=== PATIENT | female | born 1985 | race Caucasian/White ===

== ENCOUNTER 2020-04-01 04:42 | Emergency (ER) | payer OTHER, SELFPAY ==
--- NOTE | ~2020-04-01 | CT_ITS ---
EXAMINATION: CT abdomen pelvis wo con DATE: 04/01/2020 05:50 INDICATION: Left abdominal pain. TECHNIQUE: Computed tomography (CT) of the abdomen and pelvis was performed without intravenous contr ast. Automated exposure control and iterative reconstruction technique were employed. The dose-length product was 1311.93 mGy-cm. COMPARISON: None. FINDINGS: The visualized portions of the lung bases are clear without pneumonia or pleural effusion. The heart size is normal. No pericardial effusion. There is a small sliding hiatal hernia. The liver, gallbladder, spleen, pancreas, and left adrenal gland are normal. There is mild left hydronephrosis. There is asymmetric edema in left perinephric space. There is a 7 mm stone in proximal left ureter. There are no dilated loops of bowel. The appendix is normal. There are no pathologically enlarged lym ph nodes. There is no free intraperitoneal fluid. There is mild thoracic spondylosis. IMPRESSION: 1. 7 mm stone in proximal left ureter with mild left hydronephrosis. Reviewed, dictated and finalized at location A. 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
[2020-04-01 05:09] VITALS: BP 134/99; PULSE 72; RESP 18; TEMP 36.6; O2SAT 95
--- NOTE | 2020-04-01 05:12 | ED_ITS ---
HPI - General Adult General Chief complaint: Back Pain/Injury <Israel Stein DO Last Filed: 04/01/20 06:52> Stated complaint: Back Pain <Israel Stein DO Last Filed: 04/01/20 06:52> Time Seen by Provider: 04/01/20 07:12 <Israel Stein Last Filed: 04/01/20 06:52> Source: patient <Israel Stein Last Filed: 04/01/20 06:52> Mode of arrival: ambulatory <Israel Stein Last Filed: 04/01/20 06:52> Limitations: no limitations <Israel Stein Filed: 04/01/20 06:52> History of Present Illness HPI narrative: Nia is a 34F with a PMH of asthma that presented to the ED with left flank pain. It was moderate yesterday but while laying in bed it became severe tonight. It radiates from her left flank down to her left groin and is associated with nausea but no vomiting. No diarrhea, constipation, CP, SOB or sy ncope/near-syncope. No fevers or chills. <Israel Stein DO Filed: 04/01/20 06:52> Related Data Home medications: Home Medications Medication Instructions Recorded Confirmed albuterol 90 mcg INHALATION PRN PRN 04/01/20 04/01/20 budesonide-formoterol [Symbicort] 1 puff INHALATION DAILY 04/01/20 04/01/20 montelukast 10 mg PO DAILY 04/01/20 04/01/20 topiramate 75 mg PO DAILY 04/01/20 04/01/20 <Israel Stein DO Last Filed: 04/01/20 06:52> Allergies/adverse reactions: Allergies Allergy/AdvReac Type Severity Reaction Status Date / Time codeine Allergy Severe THROAT Verified 01/25/10 23:17 SWELLS <Israel Stein DO Last Filed: 04/01/20 06:52> Review of Systems Review of Systems: All systems reviewed & are unremarkable except as noted in HPI and below <DO Jay Crowder Last Filed: 04/01/20 06:52> [facility] Past Medical History Medical History: Medical History COPD (chronic obstructive pulmonary disease) Migraine headache <Israel Stein, DO - Last Filed: 04/01/20 06:52> Exam Const: General: alert <Israel Escobardeandrafarzana DO - Last Filed: 04/01/20 06:52> Orientation/consciousness: patient oriented x3 <Israel Stein, DO - Last Filed: 04/01/20 06:52> Limitations: No altered mental status <Israel AdyConcepcion Shawndeandrafarzana, DO - Last Filed: 04/01/20 06:52> Other: in mild distress <Israel Escobardeandrafarzana, DO - Last Filed: 04/01/20 06:52> HENMT: Other: normocephalic, atraumatic <Israel GarsiaConcepcion Shawndeandrafarzana, DO - Last Filed: 04/01/20 06:52> Eyes: Conjunctivae: conjunctivae normal <Israel Stein, - Last Filed: 04/01/20 06:52> Pupils: Equal, round and reactive pupils present <Israel Stein, DO - Last Filed: 04/01/20 06:52> Neck: Neck: normal visual inspection <Israel Escobardeandrafarzana, - Last Filed: 04/01/20 06:52> Chest: Chest palpation & inspection: normal inspection of the chest <Israel GarsiaConcepcion Stein DO - Last Filed: 04/01/20 06:52> Resp: Effort & Inspection: normal respiratory effort <Israel Escobardeandrafarzana - Last Filed: 04/01/20 06:52> Auscultation: clear to auscultation bilaterally <Israel AdyConcepcion Shawnsteven, DO - Last Filed: 04/01/20 06:52> Cardio: Rate: regular rate <Israel AdyConcepcion Shawnsteven DO - Last Filed: 04/01/20 06:52> Rhythm: regular rhythm <Israel AdyConcepcion Stein DO - Last Filed: 04/01/20 06:52> GI: Inspection: non-distended <Israel Stein, DO - Last Filed: 04/01/20 06:52> GI Palp: Yes
--- NOTE | 2020-04-01 05:12 | ED.GENADULT ---
HPI - General Adult General Chief complaint: Back Pain/Injury <Israel Stein DO Last Filed: 04/01/20 06:52> Stated complaint: Back Pain <Israel Stein DO - Last Filed: 04/01/20 06:52> Time Seen by Provider: 04/01/20 07:12 <Israel Stein - Last Filed: 04/01/20 06:52> Source: patient <Israel Stein DO - Last Filed: 04/01/20 06:52> Mode of arrival: ambulatory <Israel Stein - Last Filed: 04/01/20 06:52> Limitations: no limitations <Israel Stein Last Filed: 04/01/20 06:52> History of Present Illness HPI narrative: Nia is a 34F with a PMH of asthma that presented to the ED with left flank pain. It was moderate yesterday but while laying in bed it became severe tonight. It radiates from her left flank down to her left groin and is associated with nausea but no vomiting. No diarrhea, constipation, CP, SOB or syncope/near-syncope. No fevers or chills. <Israel Stein DO Last Filed: 04/01/20 06:52> Related Data Home medications: Home Medications Medication Instructions Recorded Confirmed albuterol 90 mcg INHALATION PRN PRN 04/01/20 04/01/20 budesonide-formoterol [Symbicort] 1 puff INHALATION DAILY 04/01/20 04/01/20 montelukast 10 mg PO DAILY 04/01/20 04/01/20 topiramate 75 mg PO DAILY 04/01/20 04/01/20 <Israel Stein DO - Last Filed: 04/01/20 06:52> Allergies/adverse reactions: Allergies Allergy/AdvReac Type Severity Reaction Status Date / Time codeine Allergy Severe THROAT Verified 01/25/10 23:17 SWELLS <Israel Stein DO - Last Filed: 04/01/20 06:52> Review of Systems Review of Systems: All systems reviewed & are unremarkable except as noted in HPI and below <Israel Stein DO - Last Filed: 04/01/20 06:52> [facility] Past Medical History Medical History: Medical History COPD (chronic obstructive pulmonary disease) Migraine headache <Israel Stein, DO - Last Filed: 04/01/20 06:52> Exam Const: General: alert <Israel GarsiaConcepcion Shawndeandrafarzana, DO - Last Filed: 04/01/20 06:52> Orientation/consciousness: patient oriented x3 <Israel Stein, DO - Last Filed: 04/01/20 06:52> Limitations: No altered mental status <Israel GarsiaConcepcion Shawndeandrafarzana, DO - Last Filed: 04/01/20 06:52> Other: in mild distress <Israel Escboardeandrafarzana, DO - Last Filed: 04/01/20 06:52> HENMT: Other: normocephalic, atraumatic <Israel GarsiaConcepcion Shawndeandrafarzana, DO - Last Filed: 04/01/20 06:52> Eyes: Conjunctivae: conjunctivae normal <Israel Escobardeandrafarzana, DO - Last Filed: 04/01/20 06:52> Pupils: Equal, round and reactive pupils present <Israel Stein, DO - Last Filed: 04/01/20 06:52> Neck: Neck: normal visual inspection <Israel Escobardeandrafarzana, DO - Last Filed: 04/01/20 06:52> Chest: Chest palpation & inspection: normal inspection of the chest <Israelmaury Stein, DO - Last Filed: 04/01/20 06:52> Resp: Effort & Inspection: normal respiratory effort <Israel Escobardeandrafarzana, DO - Last Filed: 04/01/20 06:52> Auscultation: clear to auscultation bilaterally <Israel AdyConcepcion Shawnsteven, DO - Last Filed: 04/01/20 06:52> Cardio: Rate: regular rate <Israel GarsiaConcepcion Shawnsteven DO - Last Filed: 04/01/20 06:52> Rhythm: regular rhythm <Israelmaury Stein DO - Last Filed: 04/01/20 06:52> GI: Inspection: non-distended <Israel Stein DO - Last Filed: 04/01/20 06:52> GI Palp: Yes Soft to palpation, No Tenderness to palpation present (GI) and No Guarding due to palpation present (GI) <Israel Stein DO - Last Filed: 04/01/20 06:52> : General: Yes no CVA tenderness <Israel Stein DO - Last Filed: 04/01/20 06:52> Back/Spine/Pelvis: Other: Left sided CVA tenderness <Irsael Stein DO - Last Filed: 04/01/20 06:52> Skin: General skin exam: normal color <Israel Stein DO - Last Filed: 04/01/20 06:52> Rashes: no rashes <Israel Stein DO - Last Filed: 04/01/20 06:52> Neuro: General: patient o
[2020-04-01] MEDS: ONDANSETRON HCL ODT 4 MG TABLET PO (05:19)
[2020-04-01] MEDS: KETOROLAC 30 MG/ML VIAL (*BKC) IM (05:20)
[2020-04-01 05:40] LABS: Basophils Absolute Auto 0.05 K/mm3 (0.00-0.10); Basophils Percent Auto 0.4 % (0.0-1.0); Eosinophils Absolute Auto 0.01 K/mm3 (0.02-0.50); Eosinophils Percent Auto 0.1 % (1.0-6.0); Hematocrit 38.4 % (35.0-49.0); Hemoglobin 12.8 g/dL (12.0-15.0); Immature Granulocyte Absolute 0.04 K/mm3 (0.00-0.00); Immature Granulocyte Percent A 0.3 % (0.0-0.0); Lymphocytes Absolute Auto 1.27 K/mm3 (1.10-4.50); Lymphocytes Percent Auto 9.6 % (18.0-42.0); Mean Corpuscular HGB Conc 33.3 g/dL (32.0-36.0); Mean Corpuscular Hemoglobin 30.3 pg (27.0-31.0); Mean Platelet Volume 9.8 fl (9.2-11.8); Monocytes Absolute Auto 0.62 K/mm3 (0.10-0.90); Monocytes Percent Auto 4.7 % (2.0-11.0); Neutrophils Absolute Auto 11.2 K/mm3 (1.7-7.2); Neutrophils Percent Auto 84.9 % (50.0-70.0); Platelet Count Result 281 K/mm3 (150-420); Red Blood Count 4.22 M/mm3 (4.20-5.40); Red Cell Distribution Width 12.4 % (11.6-14.4); White Blood Count 13.2 K/mm3 (4.8-10.8)
[2020-04-01 05:42] LABS: Add Urine Microscopic? YES; Appearance Urine Sl Cloudy (Clear); Bilirubin Urine Negative (Negative); Blood Urine 3+ (Negative); Color Urine Yellow (Yellow); Glucose Urine UA Negative (Negative); Ketones Urine Negative (Negative); Leukocyte Esterase Ur Negative (Negative); Nitrate Urine Negative (Negative); Pregnancy On Board Control Positive; Protein Urine Negative (Negative); Specific Grav Ur >= 1.030 (1.010-1.020); Urine Pregnancy Test Negative; Urobilinogen Urine 0.2 mg/dL (0.2-1.0); pH Urine 5.5 (5.0-8.0)
[2020-04-01 05:46] LABS: Squamous Epithelial Cell Urine Moderate /hpf (Few); WBC Urine None seen /hpf (0-3)
[2020-04-01 05:47] LABS: Bacteria Urine 1+ /hpf
[2020-04-01 05:51] LABS: Alanine Aminotransferase 11 U/L (14-59); Albumin Level 3.5 g/dL (3.4-5.0); Alkaline Phosphatase 65 U/L (46-116); Anion Gap 9 mmol/L (8-16); Aspartate Amino Transferase 23 U/L (15-37); Bilirubin,Total 0.3 mg/dL (0.00-1.00); Blood Urea Nitrogen 16 mg/dL (7-18); Calcium 8.8 mg/dL (8.5-10.1); Carbon Dioxide 22 mmol/L (21-32); Chloride 103 mmol/L (98-108); Estimated CRCL calculation 55 ml/min; Estimated Glomerular Filt Rate 35; Glucose 128 mg/dL (70-99); Lipase 125 U/L (73-393); Osmolality Calculated 281 mOsm/kg (285-295); Potassium 3.9 mmol/L (3.5-5.1); Sodium 134 mmol/L (136-145); Total Protein 7.3 g/dL (6.4-8.2)
[2020-04-01] MEDS: TAMSULOSIN HCL 0.4 MG CAPSULE PO (06:15)
[2020-04-01] MEDS: SODIUM CHLORIDE 0.9% IV 1,000 ML 999 ML IV CONT (06:16)
[2020-04-01 06:36] VITALS: BP 115/83; PULSE 57; RESP 18; O2SAT 98
--- NOTE | 2020-04-01 06:51 | PC.NURSE ---
Call back from [facility]. ERP spoke c shaguftav. and request made for urology consult. Will await callback from urologist.
--- NOTE | 2020-04-01 07:13 | PC.NURSE ---
ERP Dr. Villa speaking c urology Dr. Gallego at [facility]. POC discussed and orders to transfer to [facility]. Paperwork signed for transfer.
[2020-04-01] MEDS: SODIUM CHLORIDE 0.9% IV 1,000 ML 125 ML IV CONT (07:37)
[2020-04-01] MEDS: KETOROLAC 30 MG/ML VIAL (*BKC) IV PUSH (07:38)
--- NOTE | 2020-04-01 07:51 | PC.NURSE ---
Awaiting call back from [facility] for bed assignment.
[2020-04-01 08:16] VITALS: BP 113/82; PULSE 89; RESP 18; O2SAT 100
== END 2020-04-01 08:44 | disposition short-term general hospital (02) ==
PROVIDERS: Family Medicine; Emergency Provider Family Medicine; PCP Internal Medicine
DX: N20.1 Calculus of ureter (principal)
CPT/HCPCS: 36415; 74176; 80053; 81001; 81025; 83690; 85025; 96361; 96365; 96372; 96375; 99285; A9270; J0696; J1885; J7030

== ENCOUNTER 2020-04-01 14:51 | Inpatient (IN) | payer OTHER, SELFPAY ==
[2020-04-01] VITALS (11 sets, daily range): BP systolic 108–146; BP diastolic 65–110; PULSE 57–112; RESP 10–20; TEMP 36.2–36.7; O2SAT 96–100; BMI 40.2; BMI 39.7
--- NOTE | ~2020-04-01 | XR_ITS ---
EXAMINATION: XR retrograde pyelo w/stent LT DATE: 04/01/2020 12:09 INDICATION: Left ureteral stone. TECHNIQUE: 6 intraoperative fluoroscopic views of the abdomen and pelvis were obtained. I was not pre sent. Fluoroscopy exposure time was 33 seconds. COMPARISON: CT abdomen and pelvis 04/01/2020 FINDINGS: There is a 7 mm stone in proximal left ureter. The left-sided retrograde pyelogram is unrem arkable. The final images demonstrate a left internal ureteral stent in expected position. IMPRESSION: 1. 7 mm stone in proximal left ureter. 2. Left internal ureteral stent in expected position. Reviewed, dictated and finalized at location A. [employer] E[employer]AT[employer]
--- NOTE | ~2020-04-01 | XR_ITS ---
EXAMINATION: XR abdomen/kub 1V INDICATION: Left ureteral stone TECHNIQUE: Supine views of the abdomen were obtained on 2 radiographs. COMPARISON: CT from yesterday FINDINGS: A left internal ureteral stent has been placed in expected position. The previously describ ed 7 mm left ureteral stone appears to project in the left kidney lower pole. An apparent stone adjac ent to the internal ureteral stent at the level of the L3 vertebral body likely reflects the left L3 transverse process projecting adjacent to the stent. The bowel gas pattern is normal. 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 IMPRESSION: 1. Left internal ureteral stent in expected position with likely 7 mm stone of the left kidney lower pole. Reviewed, dictated and finalized at location A. 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
--- NOTE | 2020-04-01 09:25 | ADMGEN ---
This patient, Nia Welch, was admitted to Medical Room 349-01. Patient/family oriented to hospital policies and general routines including ID bracelet, bed and alarms, visiting hours, pain management, procedures, bathroom and other care routines, personal items, smoking policy, room service/diet, and visiting hours. Information on how to activate the Rapid Response Team has been discussed. Patient/Family are encouraged to report perceived risks to care and to ask questions if they do not understand what they are told or what they should do.
--- NOTE | 2020-04-01 10:28 | WPDANESEPP ---
Anes - Eval Pre Procedure Procedure: cysto L stent placement Date/Time: 04/01/20 10:28 Surgeon: negin Pre Op Diagnosis: 10 mm kidney stone,hydrometriosis Patient Data Age: 34 Gender: F Height: 1.68 m Weight: 111.7 kg Last Vital Signs Temp 36.4 C 04/01/20 09:25 Pulse 63 04/01/20 09:25 Resp 16 04/01/20 09:25 BP 122/68 04/01/20 09:25 Pulse Ox 99 04/01/20 09:25 Allergies Allergy/AdvReac Type Severity Reaction Status Date / Time codeine Allergy Severe THROAT Verified 04/01/20 10:25 SWELLS Home Medications Medication Instructions Recorded Confirmed Type albuterol 90 mcg INHALATION PRN PRN 04/01/20 04/01/20 History budesonide-formoterol [Symbicort] 2 puff INHALATION BID 04/01/20 04/01/20 History escitalopram oxalate 10 mg DAILY 04/01/20 04/01/20 History montelukast 10 mg PO DAILY 04/01/20 04/01/20 History topiramate 75 mg PO DAILY 04/01/20 04/01/20 History Patient hx anesthesia problems: none Family hx anesthesia problems: none PMFSH Past Medical History Medical History (Updated 04/01/20 @ 10:29 by Fabián Herndon CRNA) Asthma Migraine headache Family History Family History (Updated 04/01/20 @ 10:21 by Mariela Stark RN) Other No significant family history Social History Social History Smoking status: Never smoker Alcohol intake: current Drinks per week: 2 Substance use: never Spiritual care concerns: No Exam Day of Procedure 04/01/20 10:28 Patient weight: morbidly obese Heart: regular rate and rhythm Lungs: clear to auscultation Airway: Mallampati scale class II Neurological: alert and oriented
--- NOTE | 2020-04-01 11:18 | WPDURCON ---
Assessment and Plan Assessment and plan (1) Calculus of proximal left ureter: Code(s): N20.1 - Calculus of ureter Status: Acute Assessment and Plan: 34 yo WF with obstructing 7 x 10mm L proximal ureteral stone with hydro and acute renal failure. Discussed options and she elects to proceed with cystoscopy and left stent placement today with plans for definitive ESWL once she has been off of toradol x 5 days and lithotriper is available. She understands the risks of the stent placement today including but not limited to bleeding, infection, damage to the urinary tract, inability to place a stent requiring nephrostomy tube, stent irritation, and the risks of anesthesia. She elects to proceed. Is admitted to hospitalist who will follow her renal function closely. (2) Acute renal failure: Code(s): N17.9 - Acute kidney failure, unspecified Status: Acute Assessment and Plan: see above (3) Hydronephrosis concurrent with and due to calculi of kidney and ureter: Code(s): N13.2 - Hydronephrosis with renal and ureteral calculous obstruction Status: Acute Assessment and Plan: see above Urology Consult Note HPI Date Seen: 04/01/20 Requesting Physician: Juan Lee MD Primary Care Provider: Jason Dukes MD Consult Narrative Narrative: Nia Welch is a 34 year old female being seen at the request of Dr. Lee for left proximal ureteral stone. She has had a 2 day history of left flank pain radiating to LLQ. Has noted some nausea. No fevers, chills, dysuria, hematuria, or vomiting. No prior history of stones and no FH of stones. CT in [place] [facility] showed 7x 10 mm left proximal ureteral stone with hydro. Cr is 1.6. She received toradol at the outside hospital and was transferred here for stone intervention. Review of Systems Constitutional: Constitutional: Reports as per HPI and Reports no additional constitutional complaints Eyes: Eyes: Reports no additional eye complaints ENT: Reports Normal hearing present Cardiovascular: Cardiovascular: Reports no additional cardiovascular complaints Respiratory: Respiratory: Reports no additional respiratory complaints Gastrointestinal: Gastrointestinal: Reports abdominal pain Genitourinary: Genitourinary: Denies hematuria and Reports flank pain Musculoskeletal: Musculoskeletal: Reports no additional musculoskeletal complaints Neurologic: Reports Normal hearing present and Denies Neuro-related abnormal movements Psychiatric: Psychiatric: Reports as per HPI Hematologic/Lymphatic: Hematologic/Lymphatic: Reports no additional hematologic/lymphatic complaints [facility] Past Medical History Medical History Asthma Migraine headache Family History Family History (Updated 04/01/20 @ 10:21 by Mariela Stark RN) Other No significant family history Social History Social History Smoking status: Never smoker Alcohol intake: current Drinks per week: 2 Substance use: never Spiritual care concerns: No Meds Home Medications and Allergies Home Medications Medication Instructions Recorded Confirmed Type albuterol 90 mcg INHALATION PRN PRN 04/01/20 04/01/20 History budesonide-formoterol [Symbicort] 2 puff INHALATION BID 04/01/20 04/01/20 History escitalopram oxalate 10 mg DAILY 04/01/20 04/01/20 History montelukast 10 mg PO DAILY 04/01/20 04/01/20 History topiramate 75 mg PO DAILY 04/01/20 04/01/20 History Allergies Allergy/AdvReac Type Severity Reaction Status Date / Time codeine Allergy Severe THROAT Verified 04/01/20 10:25 SWELLS Vital Signs Vital Signs - 24 hr 04/01/20 09:25 Temperature 36.4 C Pulse Rate 63 Respiratory Rate 16 Blood Pressure 122/68 Pulse Oximetry 99 Exam Const: General: cooperative, healthy appearing and no acute distress HENMT: Head
--- NOTE | 2020-04-01 11:29 | WPDHPUPDATE1 ---
History and Physical Update Update Date/Time: 04/01/20 11:29 History and Physical has been reviewed, including an updated exam of the patient. There are NO changes in the patient's condition. Risks, benefits, and alternatives have been discussed and questions answered. Patient agrees to proceed with procedure.
[2020-04-01] MEDS: LACTATED RINGERS 1,000 ML 30 ML IV CONT (11:50)
--- NOTE | 2020-04-01 11:59 | WPDANESEFPP ---
Anes - Eval Final PreProcedure Day of Procedure 04/01/20 11:59 Patient weight: obese Heart: regular rate and rhythm Lungs: clear to auscultation Airway: Mallampati scale class II Neurological: alert and oriented Last oral intake: >/= 8 hours ASA classification: III Emergent: yes Anesthetic plan: proceed Anesthesia type and monitoring: general GIVS and standard monitoring Informed Consent: The patient's anesthetic plan and its attendant risks and benefits were discussed with the patient prior to start of case. Questions were solicited and answers provided to the satisfaction of the patient.
--- NOTE | 2020-04-01 12:06 | SUR.OPER ---
left ureter stent Contour VL 6fr Lot [id number], exp 02-05-23
--- NOTE | 2020-04-01 12:08 | PM.PROC ---
Procedure Note - Detailed Date of procedure: 04/01/20 Pre-op diagnosis: 10 mm kidney stone,hydrometriosis Surgeon: Crissy Gallego MD Preop Dx: left proximal ureteral stone Postop Dx: left proximal ureteral stone Procedure performed: cystoscopy, L RPG, placement of left 6Fr VL stent Anesthesia: MAC/local Indication: 34 yo WF with 7 x 10 mm L proximal ureteral stone with hydro and ARF. She elects to proceed with cystoscopy and left stent placement today. She understands that she will need definitive L ESWL once she has been off of toradol and lithotriper is available. She understood the risks of the procedure today including but not limited to bleeding, infection, damage to urinary tract, stent irritation, and risks of anesthesia. She elects to proceed Description of Procedure: Pt was correctly identified and informed consent was obtained. She was brought to the OR and a formal timeout was performed. She received IV sedation. She had already received IV antibiotics and was not due for redosing. She was placed in dorsal lithotomy position, prepped and draped in sterile fashion. A rigid cystoscope was inserted through the urethra into the bladder. There were no masses, stones, or tumors noted. On initial fluoro images, the stone was visible on KUB in the proximal ureter. A bentson wire was advanced into the left UO and up into the left kidney. An 8fr coaxial dilator was advanced over the wire into the kidney. A gentle retrograde pyelogram was performed and she was noted to have mild left hydronephrosis. A 6Fr VL stent was placed under fluoroscopic guidance with a curl in the renal pelvis and another curl in the bladder. The bladder was drained of its contents. 2% lidocaine jelly was inserted. She was awaken and taken to the recovery room in a stable fashion. Sponge/instrument/needle counts are correct Specimen: none EBL: minimal IVF: see anesthesia record Complications: none
--- NOTE | 2020-04-01 12:14 | SUR.OPER ---
Given 10ml of 2% lidocaine urojet urethra per Dr Gallego at 1205
[2020-04-01] MEDS: fentaNYL CITRATE INJ (*CRX) 100 MCG/2 ML VIAL 25 MCG IV PUSH ×2 (12:22→12:27)
--- NOTE | 2020-04-01 12:24 | PC.NURSE ---
Pt to OR per bed. Consent signed and on chart; all patient questions addressed by Dr. Gallego.
[2020-04-01] MEDS: MIDAZOLAM HCL (*CRX) 2 MG/2 ML VIAL IV PUSH (12:36)
--- NOTE | 2020-04-01 12:46 | SUR.PHASEI ---
1150 pt tearful and anxious prior to going back for surgery 1215 pt done with surgery and in pacu, pt very anxious and tearful not following commands or telling us whats wrong. 1220 dr kam at bedside pt still anxious and tearful, wants me to call anesthesia to get something for anxiety. parth shaw, senior merchandiser, notified order for 2mg versed given 1240 pt doing better now no longer cryig, or anxious, resting. pt says she hasn't had anxiety or emotion before with previous surgeries
--- NOTE | 2020-04-01 13:14 | PC.NURSE ---
Pt. returned from OR per bed. Report received from FAN Sharma.
--- NOTE | 2020-04-01 14:55 | PM.IMHP ---
H&P: HPI History of Present Illness Date/Time: 04/01/20 14:55 Chief Complaint: Left flank pain Narrative: Nia Welch is a 34 year old female who was a direct admission from [facility] per Dr. nicholas. The patient went to [facility] with complaints of left flank pain. It was moderate yesterday but while lying in bed last night became severe. It radiated to the left flank down to left growing and she also was nauseated but no vomiting occurred. Known fever no chills no body aches. No shortness of breath. Showed a 7 mm stone in the proximal left ureter with mild left hydro nephrosis. Dr. Gallego from Urology had been consulted and agreed to see the patient. The patient was taken to OR for cystoscopy left RP GM placement of left 6 Upper Sor[place] vL stent. The patient is not having any complaints at this time. No nausea vomiting. She said it is a little bit sore on her left side but it is not really anything that requires pain medication at this time. Patient was continued with Rocephin. Her white count was noted to be 13.2. Creatinine 1.64. And fentanyl. Patient is being admitted as inpatient status on date of service of 04/01/2020 Review of Systems Review of Systems: All systems reviewed & are unremarkable except as noted in HPI and below Constitutional: Constitutional: Reports as per HPI and Reports no additional constitutional complaints Eyes: Eyes: Reports as per HPI and Reports no additional eye complaints ENT: Reports system reviewed and no additional complaints, except as documented and Reports Normal hearing present Cardiovascular: Cardiovascular: Reports no additional cardiovascular complaints Respiratory: Respiratory: Reports no additional respiratory complaints and Reports no additional respiratory complaints Gastrointestinal: Gastrointestinal: Reports as per HPI and Reports no additional gastrointestinal complaints Musculoskeletal: Musculoskeletal: Reports no additional musculoskeletal complaints Integumentary/Breasts: Skin/Breast: Reports system reviewed and no additional complaints, except as docu and Reports as per HPI Neurologic: Reports system reviewed and no additional complaints, except as documented, Reports as per HPI and Reports Normal hearing present Psychiatric: Psychiatric: Reports no additional psychiatric complaints and Reports as per HPI Endocrine: Endocrine: Reports no additional endocrine complaints Hematologic/Lymphatic: Hematologic/Lymphatic: Reports no additional hematologic/lymphatic complaints Allergic/Immunologic: Allergic/Immunologic: Reports no additional allergic/immunologic complaints [facility] Past Medical History Medical History (Updated 04/01/20 @ 15:09 by Diana Sandoval NP) Anxiety Asthma Migraine headache Surgical History Surgical History (Updated 04/01/20 @ 15:09 by Diana Sandoval NP) H/O cystoscopy With 1 renal stent H/O dilation and curettage Family History Family History (Updated 04/01/20 @ 15:12 by Diana Sandoval NP) Other No family history of disorders Social History Social History (Updated 04/01/20 @ 15:13 by Diana Sandoval NP) Social History: The patient lives with her and child. She has 1 child. 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 Lifelong nonsmoker. Does not use any marijuana or illicit drugs does occasionally drink an alcoholic beverage. She works for an [employer] for more a [employer] Smoking status: Never smoker Alcohol intake: current Drinks per week: 2 Substance use: never Spiritual care concerns: No Meds Home Medications and Allergies Home Medications Medication Instructions Recorded Confirmed Type albuterol 90 mcg INHALATION PRN PRN 04/01/20 04/01/20 History budesonide-formoterol [Symbicort] 2 puff INHALATION BID 04/01/20 04/01/20 History escitalopram oxalate 10 mg DAILY 04/01/20 04/01/20 History monteluk
[2020-04-01] MEDS: SODIUM CHLORIDE 0.9% IV 1,000 ML 100 ML IV CONT (15:02)
[2020-04-01 18:50] LABS: Add Urine Microscopic? YES; Appearance Urine Cloudy (Clear); Bacteria Urine Trace /hpf; Bilirubin Urine Negative (Negative); Blood Urine 3+ (Negative); Color Urine Yellow (Yellow); Glucose Urine UA Negative (Negative); Ketones Urine Negative (Negative); Leukocyte Esterase Ur 1+ LEU/UL (Negative); Mucus Urine Rare /lpf; Nitrate Urine Negative (Negative); Protein Urine 2+ mg/dL (Negative); RBC Urine >75 /hpf (0-2); Squamous Epithelial Cell Urine Occasional /hpf (Few); Urobilinogen Urine Negative mg/dL (<2.0); WBC Urine 31-50 /hpf
[2020-04-01] MEDS: traMADol HCL (*CRX) 50 MG TABLET PO (20:10)
[2020-04-02] MEDS: SODIUM CHLORIDE 0.9% IV 1,000 ML 100 ML IV CONT ×3 (00:59→23:32)
[2020-04-02] MEDS: MORPHINE SULFATE (*CRX) 2 MG/ML INJ IV PUSH ×3 (01:41→13:11)
[2020-04-02 05:50] LABS: Basophils Percent Auto 0.5 % (0.2-1.2); Eosinophils Absolute Auto 0.1 K/mm3 (0-0.3); Eosinophils Percent Auto 0.9 % (0-4.4); Hemoglobin 11.7 g/dL (12.0-15.0); Immature Granulocyte Absolute 0.01 K/mm3 (0.00-0.031); Immature Granulocyte Percent A 0.2 % (0-0.5); Lymphocytes Absolute Auto 1.89 K/mm3 (0.9-3.2); Lymphocytes Percent Auto 28.6 % (18.3-44.2); Mean Corpuscular HGB Conc 32.5 g/dl (32-36); Mean Corpuscular Hemoglobin 30.3 pg (26-34); Mean Corpuscular Volume 93.3 fl (80-100); Mean Platelet Volume 9.8 fl (7.4-10.4); Monocytes Absolute Auto 0.3 K/mm3 (0.1-0.6); Monocytes Percent Auto 5.1 % (2.6-8.5); Neutrophils Absolute Auto 4.3 K/mm3 (1.3-6.7); Neutrophils Percent Auto 64.7 % (45.5-73.1); Platelet Count Result 228 k/mm3 (150-375); Red Blood Count 3.86 M/mm3 (4.2-5.4); Red Cell Distribution Width 12.8 % (11.5-14.5); White Blood Count 6.6 K/mm3 (4.5-10.0)
[2020-04-02 06:01] VITALS: BP 123/82; PULSE 72; RESP 14; TEMP 36.7; O2SAT 99
[2020-04-02 06:04] LABS: Anion Gap 6 mmol/L (8-16); Blood Urea Nitrogen 10 mg/dL (7-17); Carbon Dioxide 22 mmol/L (22-30); Chloride 111 mmol/L (98-107); Estimated CRCL calculation 80 ml/min; Estimated Glomerular Filt Rate 56; Glucose 98 mg/dL (65-105); Potassium 3.9 mmol/L (3.4-5.0); Sodium 139 mmol/L (137-145)
[2020-04-02] MEDS: TOPIRAMATE 25 MG TABLET 75 MG PO (08:46)
[2020-04-02] MEDS: MONTELUKAST SODIUM 10 MG TABLET PO (08:46)
[2020-04-02] MEDS: ESCITALOPRAM OXALATE 10 MG TABLET PO (08:46)
--- NOTE | 2020-04-02 12:18 | WPDUROPN2 ---
Progress Note: A&P Assessment and Plan (1) Acute renal failure: Code(s): N17.9 - Acute kidney failure, unspecified Status: Acute Assessment and Plan: Improved with stent placement. Should return to baseline, will continue to monitor. (2) Hydronephrosis concurrent with and due to calculi of kidney and ureter: Code(s): N13.2 - Hydronephrosis with renal and ureteral calculous obstruction Status: Acute Assessment and Plan: Will get a KUB to confirm stone placement after procedure to plan for potential ESWL once infection is resolved. Continue IV Ceftriaxone, tailor antibiotics to culture results. Patient having stent pain, start Flomax and Oxybutynin to improve it. Expect continued hematuria, flank pain, abdominal pain, frequency, urgency of urination and cloudy urine, all are normal with a stent placement. Would advise to keep patient until urine culture results are back. Subjective Subjective Date/Time Seen: 04/02/20 12:18 POD #1 Cystoscopy, Left RPG, Left Stent. Patient having mild left stent pain, tolerable, she is very fatigued today. Urine culture is pending. WBC is returned to normal and creatinine improved as well. Review of Systems Cardiovascular: Cardiovascular: Denies chest pain Respiratory: Respiratory: Reports no additional respiratory complaints Genitourinary: Genitourinary: Denies hematuria, Reports nocturia, Reports dysuria, Reports flank pain and Reports urinary urgency Exam Resp: Effort & Inspection: normal respiratory effort Cardio: Rate: regular rate GI: GI Palp: Yes Soft to palpation and Yes Tenderness to palpation present (GI) (LLQ) : General: Yes CVA tenderness on the left Extrem: General: no edema Objective Data Vital Signs Vital Signs: Vital Signs - 24 hr 04/01/20 12:30 04/01/20 12:45 04/01/20 12:58 Temperature Pulse Rate 61 59 L 60 Respiratory Rate 14 10 L 14 Blood Pressure 126/81 133/80 135/90 Pulse Oximetry 100 96 97 04/01/20 13:20 04/01/20 13:46 04/01/20 14:05 Temperature 97.8 F 98.0 F 97.5 F L Pulse Rate 60 57 L 60 Respiratory Rate 18 20 18 Blood Pressure 133/76 119/65 115/66 Pulse Oximetry 99 98 98 04/01/20 15:05 04/01/20 19:48 04/01/20 20:23 Temperature 98.0 F 97.6 F Pulse Rate 58 L 73 Respiratory Rate 18 20 16 Blood Pressure 108/76 109/67 Pulse Oximetry 99 98 04/02/20 06:01 Temperature 98.1 F Pulse Rate 72 Respiratory Rate 14 Blood Pressure 123/82 Pulse Oximetry 99 Intake/Output Intake/Output: Intake & Output 03/30/20 03/31/20 04/01/20 04/02/20 23:59 23:59 23:59 23:59 Intake Total 1000 1350 Output Total 350 950 Balance 650 400 Meds/Results Medications: Active Medications Generic Name Dose Route Start Last Admin Trade Name Freq PRN Reason Stop Dose Admin Acetaminophen 650 mg 04/01/20 14:51 Acetaminophen 325 Mg Tablet PO Q4H PRN Mild Pain (1-3) or Fever Albuterol 1 puff 04/01/20 13:30 Albuterol Sulfate (*Sp) Aerosol 1 Puff INHALATION PRN PRN Shortness Of Breath Or Wheezing Budesonide/Formoterol Fumarate 2 puff 04/01/20 20:00 04/02/20 08:45 Budesonide/Form 80-4.5 Mcg (*Sp) INHALATION 2 puff Q12HRT SHANNAN Administration Escitalopram Oxalate 10 mg 04/02/20 09:00 04/02/20 08:46 Escitalopram Oxalate 10 Mg Tablet PO 10 mg DAILY SHANNAN Administration Fentanyl Citrate 25 mcg 04/01/20 15:04 Fentanyl Citrate Inj (*Crx) 100 Mcg/2 Ml Vial IV PUSH Q4H PRN Pain Rated 7-10 Ceftriaxone Sodium/Dextrose 1 gm in 50 mls @ 100 mls/hr 04/02/20 07:00 04/02/20 06:32 Rocephin 1 Gm/D5w 50 Ml IVPB Infused Q24H SHANNAN Infusion Sodium Chloride 1,000 mls @ 100 mls/hr 04/01/20 13:04 04/02/20 00:59 Normal Saline Iv IV CONT 100 mls/hr .Q10H SHANNAN Administration Montelukast Sodium 10 mg 04/02/20 09:00 04/02/20 08:46 Montelukast Sodium 10 Mg Tablet PO 10 mg DAILY SHANNAN Administration Morphine Sulfate 2 mg 04/01/20 1
[2020-04-02] MEDS: TAMSULOSIN HCL 0.4 MG CAPSULE PO (13:10)
[2020-04-02] MEDS: OXYBUTYNIN CHLORIDE 5 MG TABLET PO ×2 (13:10→16:52)
--- NOTE | 2020-04-02 13:11 | P.PNAN_ITS ---
Anes - Prog Note Post-Op Date/Time: 04/02/20 13:11 Cardiovascular status: normal Respiratory status: normal Airway patency: baseline Mental status: baseline Post-Op hydration status: normal Vital Signs: Last Vital Signs Temp 36.7 C 04/02/20 06:01 Pulse 72 04/02/20 06:01 Resp 14 04/02/20 06:01 BP 123/82 04/02/20 06:01 Pulse Ox 99 04/02/20 06:01 Pain Score (VAS): 0/10. Patient resting in bed at time of assessment, appears comfortable. I/O: Intake & Output 04/01/20 04/02/20 04/02/20 23:59 07:59 15:59 Intake Total 1350 Output Total 350 950 Balance -350 400 Laboratory Tests 04/02/20 05:44 04/02/20 05:44 04/01/20 04/02/20 04/02/20 18:32 05:44 05:44 WBC 6.6 RBC 3.86 L Hgb 11.7 L Hct 36.0 L MCV 93.3 MCH 30.3 MCHC 32.5 RDW 12.8 Plt Count 228 MPV 9.8 Immature Gran % (Auto) 0.2 Neut % (Auto) 64.7 Lymph % (Auto) 28.6 [place] % (Auto) 5.1 Eos % (Auto) 0.9 Baso % (Auto) 0.5 Lymph # (Auto) 1.89 [place] # (Auto) 0.3 Eos # (Auto) 0.1 Baso # (Auto) 0.0 Abs Immat Gran (auto) 0.01 Absolute Neuts (auto) 4.3 Absolute Nucleated RBC 0.0 Nucleated RBC % 0.0 Sodium 139 Potassium 3.9 Chloride 111 H Carbon Dioxide 22 Anion Gap 6 L BUN 10 Creatinine 1.10 H Estim Creat Clear Calc 80 Estimated GFR 56 L Glucose 98 Calcium 8.0 L Urine Color Yellow Urine Appearance Cloudy H Urine pH 6.0 Ur Specific [place] 1.010 Urine Protein 2+ H Urine Glucose (UA) Negative Urine Ketones Negative Ur Blood (Man) 3+ H Urine Nitrate Negative Urine Bilirubin Negative Urine Urobilinogen Negative Leukocyte Esterase Rfl 1+ H Urine RBC >75 H Urine WBC 31-50 H Ur Squamous Epith Cells Occasional Urine Bacteria Trace Hyaline Casts 3-4 H Urine Mucus Rare Post-procedural complaints: none Patient Feedback: Patient satisfied with anesthetic care.
[2020-04-02 14:00] VITALS: BP 126/82; PULSE 66; RESP 16; TEMP 36.6; O2SAT 97
--- NOTE | 2020-04-02 16:45 | PM.IMPN ---
Progress Note: A&P Assessment and Plan (1) Hydronephrosis concurrent with and due to calculi of kidney and ureter: Code(s): N13.2 - Hydronephrosis with renal and ureteral calculous obstruction Status: Acute Assessment and Plan: Patient presents with left flank pain, CT abdomen demonstrates 7 mm calculus in proximal left ureter with mild left hydronephrosis. Management per urology - appreciate recommendations. POD#1 s/p cystoscopy and left ureteral stent placement by Dr. Gallego 04/01/20. Continue IV Rocephin, urine culture is still pending. (2) Acute renal failure: Qualifiers: Acute renal failure type: unspecified Qualified Code(s): N17.9 - Acute kidney failure, unspecified Code(s): N17.9 - Acute kidney failure, unspecified Status: Acute Assessment and Plan: Suspect secondary to above, improved with IV hydration. Monitor renal function and urine output. (3) Migraine headache: Qualifiers: Intractability: not intractable Migraine type: unspecified Status migrainosus presence: without status migrainosus Qualified Code(s): G43.909 - Migraine, unspecified, not intractable, without status migrainosus Code(s): G43.909 - Migraine, unspecified, not intractable, without status migrainosus Status: Acute Assessment and Plan: Continue with Topamax. (4) Asthma: Qualifiers: Asthma complication type: uncomplicated Asthma persistence: intermittent Asthma severity: mild Qualified Code(s): J45.20 - Mild intermittent asthma, uncomplicated Code(s): J45.909 - Unspecified asthma, uncomplicated Status: Acute Assessment and Plan: No acute issues. Continue with home Symbicort and singular. (5) Anxiety: Code(s): F41.9 - Anxiety disorder, unspecified Status: Chronic Assessment and Plan: Stable. Continue with Lexapro. Subjective Date/time seen: 04/02/20 1400 Interval history: Ms. Welch is a pleasant 34yo F admitted for left ureteral stone now POD#1 s/p left ureteral stent placement. She is feeling a little better today but continues with left flank pain. She had some dizziness earlier today after tramadol. She has eaten some breakfast and lunch without nausea or vomiting. She denies any chest pain or shortness of breath. Review of Systems Review of Systems: All systems reviewed & are unremarkable except as noted in HPI and below Exam Narrative: Exam Narrative: General: Female resting supine in bed in no acute distress. HEENT: Normocephalic, EOMI, oral mucosa moist. Cardiovascular: Rate and rhythm are regular. Respiratory: Lungs clear to auscultation bilaterally. Respirations even and non-labored. Abdomen: Soft, left flank tenderness down to left groin without guarding, non-distended, bowel sounds present. Extremities: Peripheral pulses intact. No edema. Neuro: No focal neurological deficits. Speech is clear. Objective Data Vital Signs Vital Signs: Last Vital Signs Temp 97.8 F 04/02/20 14:00 Pulse 66 04/02/20 14:00 Resp 16 04/02/20 14:00 BP 126/82 04/02/20 14:00 Pulse Ox 97 04/02/20 14:00 Intake/Output Intake/Output: Intake & Output 03/30/20 03/31/20 04/01/20 04/02/20 23:59 23:59 23:59 23:59 Intake Total 1000 2350 Output Total 350 950 Balance 650 1400 Meds/Results Medications: Active Medications Generic Name Dose Route Start Last Admin Trade Name Freq PRN Reason Stop Dose Admin Acetaminophen 650 mg 04/01/20 14:51 Acetaminophen 325 Mg Tablet PO Q4H PRN Mild Pain (1-3) or Fever Albuterol 1 puff 04/01/20 13:30 Albuterol Sulfate (*Sp) Aerosol 1 Puff INHALATION PRN PRN Shortness Of Breath Or Wheezing B
[2020-04-02 20:16] VITALS: BP 121/79; PULSE 73; RESP 16; TEMP 36.3; O2SAT 95
[2020-04-03 05:53] LABS: Basophils Percent Auto 0.6 % (0.2-1.2); Eosinophils Absolute Auto 0.1 K/mm3 (0-0.3); Eosinophils Percent Auto 1.2 % (0-4.4); Hematocrit 34.2 % (37.0-47.0); Hemoglobin 11.3 g/dL (12.0-15.0); Immature Granulocyte Absolute 0.01 K/mm3 (0.00-0.031); Immature Granulocyte Percent A 0.1 % (0-0.5); Lymphocytes Absolute Auto 2.26 K/mm3 (0.9-3.2); Lymphocytes Percent Auto 32.7 % (18.3-44.2); Mean Corpuscular Hemoglobin 30.5 pg (26-34); Mean Corpuscular Volume 92.2 fl (80-100); Mean Platelet Volume 9.8 fl (7.4-10.4); Monocytes Absolute Auto 0.4 K/mm3 (0.1-0.6); Monocytes Percent Auto 5.2 % (2.6-8.5); Neutrophils Absolute Auto 4.2 K/mm3 (1.3-6.7); Neutrophils Percent Auto 60.2 % (45.5-73.1); Platelet Count Result 237 k/mm3 (150-375); Red Blood Count 3.71 M/mm3 (4.2-5.4); Red Cell Distribution Width 12.9 % (11.5-14.5); White Blood Count 6.9 K/mm3 (4.5-10.0)
[2020-04-03 05:59] LABS: Alanine Aminotransferase 6 U/L (4-35); Albumin Level 2.9 g/dL (3.5-5.1); Alkaline Phosphatase 49 U/L (38-126); Anion Gap 5 mmol/L (8-16); Aspartate Amino Transferase 15 U/L (14-36); Bilirubin,Total 0.6 mg/dL (0.2-1.3); Blood Urea Nitrogen 7 mg/dL (7-17); Calcium 8.2 mg/dL (8.4-10.2); Carbon Dioxide 23 mmol/L (22-30); Chloride 112 mmol/L (98-107); Estimated CRCL calculation 87 ml/min; Estimated Glomerular Filt Rate > 60; Glucose 86 mg/dL (65-105); Potassium 3.9 mmol/L (3.4-5.0); Sodium 140 mmol/L (137-145)
[2020-04-03 06:39] VITALS: BP 134/87; PULSE 65; RESP 14; TEMP 36.8; O2SAT 99
[2020-04-03] MEDS: OXYBUTYNIN CHLORIDE 5 MG TABLET PO (09:24)
[2020-04-03] MEDS: TAMSULOSIN HCL 0.4 MG CAPSULE PO (09:24)
[2020-04-03] MEDS: TOPIRAMATE 25 MG TABLET 75 MG PO (09:24)
[2020-04-03] MEDS: ESCITALOPRAM OXALATE 10 MG TABLET PO (09:25)
[2020-04-03] MEDS: MONTELUKAST SODIUM 10 MG TABLET PO (09:25)
--- NOTE | 2020-04-03 10:35 | PM.DS ---
DS: Admitting Diagnosis Admitting Diagnosis Admitting Diagnosis: Hydronephrosis with urethral stone DS: Discharge Diagnosis Discharge Diagnosis (1) Hydronephrosis concurrent with and due to calculi of kidney and ureter: Code(s): N13.2 - Hydronephrosis with renal and ureteral calculous obstruction Status: Acute Assessment and Plan: CT abdomen demonstrates 7 mm calculus in proximal left ureter with mild left hydronephrosis. -POD#2 s/p cystoscopy and left ureteral stent placement by Dr. Gallego 04/01/20. -UA negative, abx stopped -Plan to f/u with urology outpt for further tx (2) Acute renal failure: Qualifiers: Acute renal failure type: unspecified Qualified Code(s): N17.9 - Acute kidney failure, unspecified Code(s): N17.9 - Acute kidney failure, unspecified Status: Acute Assessment and Plan: Resolved, likely d/t above (3) Migraine headache: Qualifiers: Migraine type: unspecified Status migrainosus presence: without status migrainosus Intractability: not intractable Qualified Code(s): G43.909 - Migraine, unspecified, not intractable, without status migrainosus Code(s): G43.909 - Migraine, unspecified, not intractable, without status migrainosus Status: Acute Assessment and Plan: No acute symptoms -Continue home medications as needed (4) Asthma: Qualifiers: Asthma severity: mild Asthma persistence: intermittent Asthma complication type: uncomplicated Qualified Code(s): J45.20 - Mild intermittent asthma, uncomplicated Code(s): J45.909 - Unspecified asthma, uncomplicated Status: Acute Assessment and Plan: No acute issues. Continue with home Symbicort and singular. (5) Anxiety: Code(s): F41.9 - Anxiety disorder, unspecified Status: Chronic Assessment and Plan: Stable. Continue with Lexapro. DS: Summary Hospital Course Reason for hospitalization: Hydronephrosis with nephrolithiasis Hospital Course: Patient is a 34-year-old female who presented emergency room for left flank pain found to have a 7 mm stone in the proximal left ureter with mild left hydronephrosis. Patient was admitted to the hospitalist service and started on pain medications and underwent cystoscopy with placement of a left stent. The patient had no complications. Her UA was negative so antibiotics were stopped. The day of discharge the patient was feeling better and ready to go. She has follow-up with urology for further treatment. She was educated about the worrisome signs symptoms to come back to emergency room for and was discharged in stable condition Pt discharged 04/03/20 Status at Discharge Functional status at discharge: independent ambulation Overall status at discharge: patient is back to baseline Time Spent with Patient Time attestation: Total time spent providing and/or coordinating discharge services:32 min Time spent: Greater than 30 minutes Exam Narrative: Exam Narrative: General: Well developed well nourished patient in NAD HEENT: normocephalic Neck: supple Neuro: Alert and oriented x4 CV:RRR Resp:CTA Abd: Soft, non distended. Pain to palpation to the left lower quadrant pain. Positive bowel sounds. CVA tenderness in left Extremities: No swelling, erythema, or pain to palpation. DS: Data Data Completed and Pending Labs on day of discharge: Labs from last 24 hours 04/03/20 04/03/20 05:29 05:29 WBC 6.9 RBC 3.71 L Hgb 11.3 L Hct 34.2 L MCV 92.2 MCH 30.5 MCHC 33.0 RDW 12.9 Plt Count 237 MPV 9.8 Immature Gran % (Auto) 0.1 Neut % (Auto) 60.2 Lymph % (Auto) 32.7 [place] % (Auto) 5.2 Eos % (Auto) 1.2 Baso % (Auto) 0.6 Lymph # (Auto) 2.26 [place] # (Auto) 0.4 Eos # (Auto) 0.1 Baso # (Auto) 0.0 Abs Immat Gran (auto) 0.01 Absolute Neuts (auto) 4.2 Absolute Nucleated RBC 0.0 Nucleated RBC % 0.0 Sodium 140 Potass
--- NOTE | 2020-04-03 10:48 | WPDUROPN2 ---
Progress Note: A&P Assessment and Plan (1) Hydronephrosis concurrent with and due to calculi of kidney and ureter: Code(s): N13.2 - Hydronephrosis with renal and ureteral calculous obstruction Status: Acute Assessment and Plan: Repeat KUB after stent placement shows 7mm in the left kidney, non obstructive. Urine culture is negative. Ok to discharge home today, will follow up in the office tomorrow with Dr. Eaton for surgical planning/consultation. We will plan to do an ESWL next week. Subjective Subjective Date/Time Seen: 04/03/20 10:48 POD #2 Cystoscopy, Left RPG, Left Stent. Patient having mild left stent pain, tolerable, she is very fatigued today. Urine culture is negative. WBC is returned to normal and creatinine improved as well. Patient was unable to tolerate Morphine, and we switched her to IV Tylenol, which she is tolerating well as well as Oxybutynin for stent pain as needed. She does'nt tolerate Codeine well, but is willing to try Vicodin if the Tylenol isn't helpful at home. Review of Systems Cardiovascular: Cardiovascular: Denies chest pain Respiratory: Respiratory: Reports no additional respiratory complaints Gastrointestinal: Gastrointestinal: Reports abdominal pain, Denies nausea and Denies vomiting Genitourinary: Genitourinary: Denies hematuria, Denies dysuria, Reports pelvic pain, Reports flank pain and Denies urinary urgency Exam Resp: Effort & Inspection: normal respiratory effort Cardio: Rate: regular rate GI: GI Palp: Yes Soft to palpation and Yes Tenderness to palpation present (GI) (LLQ) : General: Yes CVA tenderness on the left Extrem: General: no edema Objective Data Vital Signs Vital Signs: Vital Signs - 24 hr 04/02/20 14:00 04/02/20 20:16 04/03/20 06:39 Temperature 97.8 F 97.4 F L 98.3 F Pulse Rate 66 73 65 Respiratory Rate 16 16 14 Blood Pressure 126/82 121/79 134/87 Pulse Oximetry 97 95 99 Intake/Output Intake/Output: Intake & Output 03/31/20 04/01/20 04/02/20 04/03/20 23:59 23:59 23:59 23:59 Intake Total 1000 4730 650 Output Total 350 950 600 Balance 650 3780 50 Meds/Results Medications: Active Medications Generic Name Dose Route Start Last Admin Trade Name Freq PRN Reason Stop Dose Admin Acetaminophen 650 mg 04/01/20 14:51 Acetaminophen 325 Mg Tablet PO Q4H PRN Mild Pain (1-3) or Fever Albuterol 1 puff 04/01/20 13:30 Albuterol Sulfate (*Sp) Aerosol 1 Puff INHALATION PRN PRN Shortness Of Breath Or Wheezing Budesonide/Formoterol Fumarate 2 puff 04/01/20 20:00 04/02/20 20:17 Budesonide/Form 80-4.5 Mcg (*Sp) INHALATION 2 puff Q12HRT SHANNAN Administration Escitalopram Oxalate 10 mg 04/02/20 09:00 04/03/20 09:25 Escitalopram Oxalate 10 Mg Tablet PO 10 mg DAILY SHANNAN Administration Fentanyl Citrate 25 mcg 04/01/20 15:04 Fentanyl Citrate Inj (*Crx) 100 Mcg/2 Ml Vial IV PUSH Q4H PRN Pain Rated 7-10 Ceftriaxone Sodium/Dextrose 1 gm in 50 mls @ 100 mls/hr 04/02/20 07:00 04/03/20 07:15 Rocephin 1 Gm/D5w 50 Ml IVPB Infused Q24H SHANNAN Infusion Sodium Chloride 1,000 mls @ 100 mls/hr 04/01/20 13:04 04/02/20 23:32 Normal Saline Iv IV CONT 100 mls/hr .Q10H SHANNAN Administration Acetaminophen 1,000 mg in 100 mls @ 400 mls/hr 04/02/20 17:21 04/03/20 07:06 Ofirmev 1,000 Mg Ivpb IVPB 04/03/20 17:22 Infused Q6H PRN Infusion Pain Rated 4-6 Montelukast Sodium 10 mg 04/02/20 09:00 04/03/20 09:25 Montelukast Sodium 10 Mg Tablet PO 10 mg DAILY SHANNAN Administration Morphine Sulfate 2 mg 04/01/20 13:04 04/02/20 13:11 Morphine Sulfate (*Crx) 2 Mg/Ml Inj IV PUSH 2 mg Q4H PRN Administration Pain Rated 7-10 Ondansetron HCl 4 mg 04/01/20 14:51 Ondansetron Inj 4 Mg/2 Ml Vial IV PUSH Q6H PRN Nausea And Vomiting Oxybutynin Chloride 5 mg 04/02/20 13:00 04/03/20 09:24 Oxybutynin Chloride 5 Mg Tablet PO 5 mg
== END 2020-04-03 14:00 | disposition home or self-care (01) | DRG 661 ==
LOC: ANH3MED 04-03 12:24 → ANH3MEDSUR 04-09 10:40
PROVIDERS: Nurse Practitioner; Physician Assistant; Urology; Admitting Provider Family Medicine; PCP Internal Medicine; Visit Provider Internal Medicine
PROC: 0T778DZ Dilation of Left Ureter with Intraluminal Device, Via Natural or Artificial Opening Endoscopic (ICD-10-PCS; CPT 52352; principal; 2020-04-01 11:30)
DX: N13.2 Hydronephrosis with renal and ureteral calculous obstruction (principal); N17.9 Acute kidney failure, unspecified; G43.909 Migraine, unspecified, not intractable, without status migrainosus; J45.20 Mild intermittent asthma, uncomplicated; F41.9 Anxiety disorder, unspecified; Z79.899 Other long term (current) drug therapy; Z88.8 Allergy status to other drugs, medicaments and biological substances
CPT/HCPCS: 36415; 74018; 74420; 80048; 80053; 81001; 83735; 85025; 87086; A9270; C1769; C2617; J0131; J0696; J2250; J2270; J2704; J3010; J7030; J7120; Q9966

== ENCOUNTER 2020-05-18 02:05 | Day surgery (SDC) | payer OTHER, SELFPAY ==
[2020-05-17 08:33] VITALS: BMI 37.1
--- NOTE | ~2020-05-18 | XR_ITS ---
XR abdomen/kub 1V DATE: 05/18/2020 06:05 INDICATION: Lithotripsy TECHNIQUE: AP projection, 2 views COMPARISON: 04/02/2020 KUB 04/01/[address] abdomen pelvis FINDINGS: Approximately 7 mm calcified calculus overlies the left kidney. There is a left internal urinary stent, proximal pigtail overlying the upper pole infundibulum, the d istal pigtail overlying the superolateral aspect of the urinary bladder. No other urinary tract calculus is detected. No visceromegaly is noted. The psoas shadows are intact. The bowel gas pattern is unremarkable withou t evidence of obstruction. IMPRESSION: 7 millimeter lower pole left renal calcified calculus Left internal urinary stent Reviewed, dictated and finalized at [facility] Reviewed, dictated and finalized at [facility] BER
[2020-05-18 06:13] VITALS: BP 136/93; PULSE 98; RESP 20; TEMP 36.3; O2SAT 98
[2020-05-18] MEDS: LACTATED RINGERS 1,000 ML 30 ML IV CONT (06:35)
[2020-05-18 06:44] LABS: Add Urine Microscopic? YES; Appearance Urine Cloudy (Clear); Bilirubin Urine Negative (Negative); Blood Urine 3+ (Negative); Calcium Oxalate Crystals Urine Present /hpf; Color Urine Yellow (Yellow); Glucose Urine UA Negative (Negative); Ketones Urine Negative (Negative); Leukocyte Esterase Ur 2+ LEU/UL (NEGATIVE); Mucus Urine Heavy /lpf; Nitrate Urine Negative (Negative); Protein Urine 3+ mg/dL (Negative); RBC Urine >75 /hpf (0-2); Specific Grav Ur 1.018 (1.001-1.035); Squamous Epithelial Cell Urine Many /hpf (Few); Urobilinogen Urine Negative mg/dL (<2.0); WBC Urine 31-50 /hpf (0-3)
--- NOTE | 2020-05-18 06:45 | WPDANESEPPF ---
Anes - Initial Pre Proc Eval Procedure: Operation Date: 05/18/20 07:30 Proposed Procedures p Left Extracorporeal Shock Wave Lithotripsy, Possible Stent Removal or Replacement - Nilo Eaton MD Date/Time: 05/18/20 06:45 Surgeon: Nilo Eaton MD Pre Op Diagnosis: Left Kidney Stone Patient Data Age: 34 Gender: F Height: 5 ft 6 in Weight: 104.5 kg Allergies Allergy/AdvReac Type Severity Reaction Status Date / Time codeine Allergy Severe THROAT Verified 05/17/20 08:30 SWELLS Home Medications Medication Instructions Recorded Confirmed Type albuterol 90 mcg INHALATION PRN PRN 04/01/20 05/18/20 History budesonide-formoterol [Symbicort] 2 puff INHALATION BID 04/01/20 05/18/20 History escitalopram oxalate 10 mg DAILY 04/01/20 05/18/20 History montelukast 10 mg PO DAILY 04/01/20 05/18/20 History topiramate 150 mg PO DAILY 04/01/20 05/18/20 History hydrocodone-acetaminophen 1 tablet PO Q4H PRN 5 Days #20 04/03/20 05/17/20 Rx tablet Laboratory Tests 05/18/20 06:24 Urine Color Yellow (Yellow) Urine Appearance Cloudy H (Clear) Urine pH 6.0 (5.0-9.0) Ur Specific [place] 1.018 (1.001-1.035) Urine Protein 3+ mg/dL H mg/dL (Negative) Urine Glucose (UA) Negative mg/dL mg/dL (Negative) Urine Ketones Negative mg/dL mg/dL (Negative) Ur Blood (Man) 3+ H (Negative) Urine Nitrate Negative (Negative) Urine Bilirubin Negative (Negative) Urine Urobilinogen Negative mg/dL mg/dL (<2.0) Ur Leukocyte Esterase 2+ SOLANGE/UL H SOLANGE/UL (NEGATIVE) Urine RBC >75 /hpf H /hpf (0-2) Urine WBC 31-50 /hpf H /hpf (0-3) Ur Squamous Epith Cells Many /hpf H /hpf (Few) Calcium Oxalate Crystal Present /hpf /hpf (None) Urine Mucus Heavy /lpf H /lpf Patient hx anesthesia problems: other (motion sickness) Family hx anesthesia problems: none PMFSH Past Medical History Medical History Anxiety Asthma Depression Migraine headache Surgical History Surgical History H/O cystoscopy With 1 renal stent H/O dilation and curettage Family History Family History (Updated 04/01/20 @ 15:12 by Diana Sandoval NP) Other No family history of disorders Social History Social History Social History: The patient lives with her and child. She has 1 child. 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 Lifelong nonsmoker. Does not use any marijuana or illicit drugs does occasionally drink an alcoholic beverage. She works for an [employer] for more a [employer]. Smoking status: Never smoker Alcohol intake: current Drinks per week: 2 Substance use: never Living arrangements: with family Spiritual care concerns: No Anes - Eval Final PreProcedure Day of Procedure 05/18/20 06:45 Patient weight: obese Heart: regular rate and rhythm Lungs: clear to auscultation Airway: Mallampati scale class II Neurological: alert and oriented Last oral intake: >/= 8 hours ASA classification: III Emergent: no Anesthetic plan: proceed Anesthesia type and monitoring: general LMA and standard monitoring Informed Consent: The patient's anesthetic plan and its attendant risks and benefits were discussed with the patient/family/POA. Questions were solicited and answers provided to the satisfaction of the patient/family/POA.
[2020-05-18] MEDS: SCOPOLAMINE 1.5 MG PATCH TRANSDERM (06:53)
[2020-05-18 07:10] LABS: INR 0.9; Prothrombin Time 12.6 Seconds (11.1-14.7)
[2020-05-18 07:12] LABS: Partial Thromboplastin Time 27.4 SECONDS (22.3-36.8)
[2020-05-18 07:19] LABS: Beta HCG Quantitative < 2.39 mIU/ML
[2020-05-18 08:25] LABS: Add Urine Microscopic? YES; Appearance Urine Cloudy (Clear); Bilirubin Urine Negative (Negative); Blood Urine 3+ (Negative); Color Urine Yellow (Yellow); Glucose Urine UA Negative (Negative); Ketones Urine Negative (Negative); Leukocyte Esterase Ur 2+ LEU/UL (Negative); Mucus Urine Rare /lpf; Nitrate Urine Negative (Negative); Protein Urine 2+ mg/dL (Negative); RBC Urine >75 /hpf (0-2); Specific Grav Ur 1.017 (1.001-1.035); Squamous Epithelial Cell Urine Occasional /hpf (Few); Urobilinogen Urine Negative mg/dL (<2.0)
== END 2020-05-18 09:15 | disposition home or self-care (01) ==
PROVIDERS: PCP Internal Medicine; Visit Provider Urology
PROC: (CPT 50590; principal; 2020-05-18 07:30)
DX: N20.1 Calculus of ureter (principal); Z79.51 Long term (current) use of inhaled steroids; F41.9 Anxiety disorder, unspecified; J45.909 Unspecified asthma, uncomplicated; F32.9 Major depressive disorder, single episode, unspecified; E66.9 Obesity, unspecified; Z68.37 Body mass index [BMI] 37.0-37.9, adult; Z53.9 Procedure and treatment not carried out, unspecified reason
CPT/HCPCS: 36415; 74018; 81001; 84702; 85610; 85730; 87086; 99213; A9270; G0463; J2250; J3010; J7030; J7120

== ENCOUNTER 2020-05-25 01:38 | Day surgery (SDC) | payer OTHER, SELFPAY ==
--- NOTE | 2020-05-22 08:43 | P.HP_ITS ---
History of Present Illness History of Present Illness Consent: Risks, benefits, and alternatives have been discussed and questions answered. Patient agrees to proceed with procedure. Chief complaint: Left Renal Stone Narrative: Nia Welch is a 35 year old female Without prior history of urolithiasis in till March 2020. The time she presented with sudden onset severe left flank pain. CT imaging demonstrated a 7 mm proximal ureteral stone. She had been scheduled for lithotripsy in April but was canceled because of developing asymptomatic COVID infection. Review of Systems Cardiovascular: Cardiovascular: Denies chest pain, Denies lightheadedness, Denies palpitations and Denies dyspnea Respiratory: Respiratory: Denies dyspnea Gastrointestinal: Gastrointestinal: Denies diarrhea, Denies nausea and Denies vomiting Genitourinary: Genitourinary: Denies hematuria and Denies dysuria Endocrine: Endocrine: Denies palpitations PMFSH Past Medical History Medical History Anxiety Asthma Depression Migraine headache Surgical History Surgical History H/O cystoscopy With 1 renal stent H/O dilation and curettage Family History Family History Other No family history of disorders Social History Social History Social History: The patient lives with her and child. She has 1 child. 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 Lifelong nonsmoker. Does not use any marijuana or illicit drugs does occasionally drink an alcoholic beverage. She works for an [employer] for more a [employer]. Smoking status: Never smoker Alcohol intake: current Drinks per week: 2 Substance use: never Spiritual care concerns: No Meds Home Medications and Allergies Home Medications Medication Instructions Recorded Confirmed Type albuterol 90 mcg INHALATION PRN PRN 04/01/20 05/18/20 History budesonide-formoterol [Symbicort] 2 puff INHALATION BID 04/01/20 05/18/20 History escitalopram oxalate 10 mg DAILY 04/01/20 05/18/20 History montelukast 10 mg PO DAILY 04/01/20 05/18/20 History topiramate 150 mg PO DAILY 04/01/20 05/18/20 History hydrocodone-acetaminophen 1 tablet PO Q4H PRN 5 Days #20 04/03/20 05/17/20 Rx tablet Allergies Allergy/AdvReac Type Severity Reaction Status Date / Time codeine Allergy Severe THROAT Verified 05/17/20 08:30 MIKHAILTorsten Assessment and Plan Assessment and plan (1) Left ureteral stone: Code(s): N20.1 - Calculus of ureter Status: Acute Assessment and Plan: * Left ESWL with possible cystoscopy, stent removal or replacement
[2020-05-24 14:40] VITALS: BMI 39.1
--- NOTE | 2020-05-24 15:51 | P.PNAN_ITS ---
Anes - Initial Pre Proc Eval Procedure: Operation Date: 05/25/20 12:00 Proposed Procedures p Left Renal Extracorporeal Shock Wave Lithotripsy, Cystoscopy, Possible Left Stent Removal/Replacement - Bin Taylor MD Date/Time: 05/24/20 15:51 Surgeon: Bin Taylor MD Pre Op Diagnosis: Left Renal Stone Patient Data Age: 35 Gender: F Height: 1.68 m Weight: 110 kg Allergies Allergy/AdvReac Type Severity Reaction Status Date / Time codeine Allergy Severe THROAT Verified 05/24/20 14:40 SWELLS Home Medications Medication Instructions Recorded Confirmed Type albuterol 90 mcg INHALATION PRN PRN 04/01/20 05/24/20 History budesonide-formoterol [Symbicort] 2 puff INHALATION BID 04/01/20 05/24/20 History escitalopram oxalate [Lexapro] 10 mg DAILY 04/01/20 05/24/20 History montelukast 10 mg PO DAILY 04/01/20 05/24/20 History topiramate 150 mg PO DAILY 04/01/20 05/24/20 History hydrocodone-acetaminophen 1 tablet PO Q4H PRN 5 Days #20 04/03/20 05/24/20 Rx tablet Patient hx anesthesia problems: none Family hx anesthesia problems: none PMFSH Past Medical History Medical History (Updated 05/24/20 @ 15:51 by Jun Rizzo MD) Anxiety Asthma COPD (chronic obstructive pulmonary disease) Depression Migraine headache Obesity Surgical History Surgical History H/O cystoscopy With 1 renal stent H/O dilation and curettage Family History Family History Other No family history of disorders Social History Social History Social History: The patient lives with her and child. She has 1 child. She desires to have her is a durable power trademark attorney and she desires to be a full code. Lifelong nonsmoker. Does not use any marijuana or illicit drugs does occasionally drink an alcoholic beverage. She works for an [employer] for more a [employer]. Smoking status: Never smoker Alcohol intake: current Drinks per week: 2 Substance use: never Living arrangements: with family Spiritual care concerns: No Anes - Eval Final PreProcedure Day of Procedure 05/24/20 15:51 Patient weight: obese Heart: regular rate and rhythm Lungs: clear to auscultation and normal air movement Airway: Mallampati scale class II Neurological: alert and oriented Last oral intake: >/= 8 hours ASA classification: III Emergent: no Anesthetic plan: proceed Anesthesia type and monitoring: general LMA Informed Consent: The patient's anesthetic plan and its attendant risks and benefits were discussed with the patient/family/POA. Questions were solicited and answers provided to the satisfaction of the patient/family/POA.
[2020-05-25] VITALS (7 sets, daily range): BP systolic 114–132; BP diastolic 79–96; PULSE 69–103; RESP 17–22; TEMP 36.4–37.2; O2SAT 96–99
--- NOTE | ~2020-05-25 | XR_ITS ---
EXAMINATION: XR abdomen/kub 1V DATE: 05/25/2020 09:59 INDICATION: Left kidney stone. TECHNIQUE: A supine view of the abdomen on 2 radiographs was obtained. COMPARISON: CT abdomen and pelvis 04/01/2020 FINDINGS: There are no dilated loops of bowel. There is a 6 mm stone in left kidney lower pole. There is a left internal ureteral stent in expected position. There is a phlebolith in right pelvis. IMPRESSION: 1. 6 mm stone in left kidney. Left internal ureteral stent in expected position. Reviewed, dictated and finalized at location A. AL SPECIALIST IMPRESSION: 1. 6 mm stone in left kidney. Left internal ureteral stent in expected position .
--- NOTE | 2020-05-25 06:39 | WPDHPUPDATE1 ---
History and Physical Update Update Date/Time: 05/25/20 06:39 History and Physical has been reviewed, including an updated exam of the patient. There are NO changes in the patient's condition. Risks, benefits, and alternatives have been discussed and questions answered. Patient agrees to proceed with procedure.
[2020-05-25] MEDS: LACTATED RINGERS 1,000 ML 30 ML IV CONT ×2 (10:45→13:03)
[2020-05-25] MEDS: ceFAZolin 2 GM/D5W 50 ML 2 GM/50 ML BAG IVPB (12:11)
--- NOTE | 2020-05-25 12:41 | PM.PROC ---
Procedure Note - Detailed Date of procedure: 05/25/20 Pre-op diagnosis: Left Renal Stone Post-op diagnosis: same Procedure performed: 1. Cystoscopy, left stent removal. 2. Left renal ESWL Description of procedure: The patient was brought to the operative suite where she was placed in the frog-legged position on the Dornier lithotripter table. Flexible cystoscopy was undertaken with a 16F flexible cystoscopy. Her urethra and bladder neck were endoscopically normal. The bladder mucosa was normal and there was a single, orthotopic ureteral orifice bilaterally. The tip of the indwelling stent was grasped and the stent was removed with ease. The patient was then repositioned in the supine position and the focal point of the lithotriptor was placed at a 5mm left lower pole renal calculus. A total of 2500 shocks were delivered at a power setting of 3. There appeared to be good fragmentation of the stone. The patient tolerated the procedure well and was taken to the recovery room in good condition. Anesthesia: GLMA Surgeon: Bin Taylor MD Estimated blood loss (mL): 0 Drains: No Packing: No Pathology: none sent Complications: No immediate complications Condition: stable
== END 2020-05-25 14:35 | disposition home or self-care (01) ==
PROVIDERS: PCP Internal Medicine; Visit Provider Urology
PROC: (CPT 50590; principal; 2020-05-25 12:00)
DX: N20.0 Calculus of kidney (principal); J44.9 Chronic obstructive pulmonary disease, unspecified; F41.8 Other specified anxiety disorders; E66.9 Obesity, unspecified; Z68.37 Body mass index [BMI] 37.0-37.9, adult
CPT/HCPCS: 50590; 74018; A9270; J0690; J1100; J2250; J2405; J2704; J3010; J7030; J7120

== ENCOUNTER 2020-06-08 15:14 | Outpatient (CLI) | payer OTHER, SELFPAY ==
--- NOTE | ~2020-06-08 | XR_ITS ---
EXAMINATION: XR abdomen/kub 1V DATE: 06/08/2020 15:37 INDICATION: Left kidney stone. TECHNIQUE: A supine view of the abdomen on 2 radiographs was obtained. COMPARISON: CT abdomen and pelvis 04/01/2020 FINDINGS: There are no dilated loops of bowel. There are phleboliths in the pelvis. IMPRESSION: 1. No visible urolithiasis. Reviewed, dictated and finalized at location A. E MACHINE OPERATOR IMPRESSION: 1. No visible urolithiasis.
== END 2020-06-08 15:15 | disposition home or self-care (01) ==
LOC: CHSIMG 15:16
PROVIDERS: PCP Internal Medicine; Visit Provider Urology
DX: N20.0 Calculus of kidney (principal)
CPT/HCPCS: 74018